=== PATIENT | male | born 1970 | race Caucasian/White ===

== ENCOUNTER → 2017-11-23 | Outpatient (CLI) | payer BC ==
--- NOTE | 2017-11-23 17:05 | RAD ---
CT of the abdomen and pelvis without contrast, 11/23/2017: HISTORY: Hematuria Noncontrast scans were obtained utilizing the renal stone protocol. No intrarenal calculi are identified. The renal collecting systems and ureters are not dilated. No ureteral calculus is seen. The partially filled urinary bladder is unremarkable. Surgical clips at the base of the scrotum are likely secondary to a prior vasectomy. An 8 mm low-density lesion in the right lobe of the liver is too small to definitively characterize but is probably a cyst. The liver is otherwise unremarkable. No gallbladder abnormality is seen. The pancreas shows no abnormality. The spleen is of normal size. The abdominal aorta is of normal caliber. No abdominal or pelvic adenopathy is seen. Several prostatic calcifications are noted. The seminal vesicles are unremarkable. The bowel loops are not dilated. No free fluid or free air is evident in the abdomen or pelvis. There is moderate facet joint arthropathy in the lower lumbar spine. 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 IMPRESSION: 1. No urinary tract calculi are identified. 2. Miscellaneous chronic findings as described above. PQRS Compliance Statement: One or more of the following individualized dose reduction techniques were utilized for this examination: 1. Automated exposure control 2. Adjustment of the mA and/or kV according to patient size 3. Use of iterative reconstruction technique Electronically signed by: Laron Haley MD (11/23/2017 5:02 PM) [facility]
== END | disposition home or self-care (01) ==
LOC: CT 15:13
PROVIDERS: ATTEND Family Medicine
DX: R31.9 Hematuria, unspecified (principal); K76.9 Liver disease, unspecified
CPT/HCPCS: 74176